=== PATIENT | male | born 1985 | race African-American/Black ===

== ENCOUNTER 2017-04-05 10:40 | Day surgery (SDC) | payer OTHER ==
[~2017-04-05] VITALS: Ht 180.3 cm; Wt 82.1 kg
[~2017-04-05 10:40] MED LIST: ROXICODONE5 MG PO
[2017-04-05 11:24] VITALS: BP 113/67
[2017-04-05 15:58] VITALS: BP 139/89
== END 2017-04-05 16:10 | disposition home or self-care (01) ==
LOC: SDC 10:40 → EDSTATUS 12:59 → SDC 13:00
PROC: 0PSP04Z Reposition Right Metacarpal with Internal Fixation Device, Open Approach (ICD-10-PCS; principal; 2017-04-05)
DX: S62.336A Displaced fracture of neck of fifth metacarpal bone, right hand, initial encounter for closed fracture (principal); J45.909 Unspecified asthma, uncomplicated; W22.01XA Walked into wall, initial encounter
CPT/HCPCS: 73120; 76000; C1769; J0690; J1100; J1170; J1885; J2250; J2405; J3010; S0020